=== PATIENT | male | born 1965 | race Caucasian/White ===

== ENCOUNTER 2016-10-18 18:04 | Inpatient (IN) | payer MEDICAID ==
[~2016-10-18] VITALS: Ht 177.8 cm; Wt 117.5 kg
[2016-10-18] MEDS ORDERED: SOD CHLORIDE 0.9% 1,000 ML IV STA (18:22)
[2016-10-18 18:34] LABS: ADD SCAN DIFF NO
[2016-10-18 18:36] LABS: BASOPHIL # 0.1 10^3/ul (0.0-0.1); BASOPHILS % 0.6 % (0.0-2.0); EOSINOPHILS # 0.2 10^3/ul (0.0-0.5); EOSINOPHILS % 1.8 % (0.0-7.0); HEMATOCRIT 44.6 % (42.0-52.0); HEMOGLOBIN 14.9 g/dl (14.0-18.0); LYMPHOCYTES # 3.6 10^3/ul (0.8-2.9); LYMPHOCYTES % 39.8 % (15.0-51.0); MEAN CORPUSCULAR HEMOGLOBIN 27.6 pg (29.0-33.0); MEAN CORPUSCULAR HGB CONC 33.4 g/dl (32.0-37.0); MEAN CORPUSCULAR VOLUME 82.6 fl (82.0-101.0); MEAN PLATELET VOLUME 9.3 fl (7.4-10.4); MONOCYTE # 0.8 10^3/ul (0.3-0.9); MONOCYTES % 8.4 % (0.0-11.0); NEUTROPHIL # 4.4 10^3/ul (1.6-7.5); NEUTROPHILS % 49.1 % (39.0-77.0); PLATELET COUNT 274 10^3/UL (140-415); RED CELL DISTRIBUTION WIDTH 13.4 % (11.5-14.5)
[2016-10-18 18:50] LABS: INR 0.99; PROTIME 13.1 Sec (12.2-14.2)
[2016-10-18 18:51] LABS: PARTIAL THROMBOPLASTIN TIME 22.9 Sec (25.0-35.0)
[2016-10-18 18:56] LABS: ANION GAP 20 (8-16); BLOOD UREA NITROGEN 21 mg/dl (7-20); CALCIUM 10.1 mg/dl (8.4-10.2); CARBON DIOXIDE 26 mmol/L (21-31); CHLORIDE 98 mmol/L (97-110); CREATININE 0.91 mg/dl (0.61-1.24); GLUCOSE 193 mg/dl (70-220); MAGNESIUM 1.6 mg/dl (1.7-2.5); SODIUM 140 mmol/L (135-144)
[2016-10-18] MEDS ORDERED: DILTIAZEM 25 MG INJ IV ONE ×2 (19:00→20:00)
[2016-10-18] MEDS ORDERED: DILTIAZEM 30 MG TAB PO ONE (19:00)
[2016-10-18 19:13] LABS: TROPONIN-I < 0.012 ng/ml (0.00-0.12)
[2016-10-18] MEDS ORDERED: MAGNESIUM SULFATE 2 GM/50 ML 50 ML IVPB ONE (19:30)
--- NOTE | 2016-10-18 19:38 | RADRPT ---
PROCEDURE: XR, Chest. CLINICAL INDICATION: Chest pain. TECHNIQUE: AP chest COMPARISON: None available. FINDINGS: There is no acute infiltrate in the lungs. No pleural effusion. The heart is not enlarged. IMPRESSION: 1. Unremarkable chest x-ray. RPTAT: GG .Jim Duenas MD, Date Time Electronically viewed and signed by .Jim Duenas MD, MD on 10/18/2016 19:37 .Y/
--- NOTE | 2016-10-18 19:52 | HP ---
Date/Time of Note Date/Time of Note DATE: 10/18/16 TIME: 19:50 Assessment/Plan VTE Prophylaxis VTE Prophylaxis Intervention: LMWH Lines/Catheters IV Catheter Type (from Nrsg): Saline Lock Assessment/Plan Assessment/Plan 51-year-old male who was referred to us for an abnormal EKG now managed as follows: 1. New onset atrial flutter with rapid ventricular response 2. Uncontrolled hypertension 3. Hypomagnesemia mild Plan Admit patient to telemetry floor, rule out acute coronary syndrome, cardiology consult, 2D echo, urine toxicology screen Continue calcium channel as well as beta blockers, titrate for improved rate control Patient will likely require anticoagulation, will defer to cardiology, in the interim, start aspirin therapy Replace and monitor electrolytes, keep magnesium greater than 2 and potassium at least 4.0 Supportive care with pain control, antiemetics as needed Further interventions per clinical course Prophylaxis: Lovenox/Pepcid HPI/ROS Admit Date/Time Admit Date/Time October 18, 2016 Hx of Present Illness 51-year-old male with a past medical history of high blood pressure and diabetes outside clinic who was referred to us from an where he had an abnormal EKG. Patient reports just feeling sick with occasional palpitations and some nausea, but he had no chest pain or shortness of breath. Was recently diagnosed with high blood pressure and started on 3 new medications, but did not feel better and that is why he went back to the clinic today. EKG showed atrial flutter and this was reproduced in the emergency room with a rapid ventricular response he was treated with calcium channel blockers with mild improvement and he is being admitted for a detailed workup and cardiology review and further management. ROS 12 point review if systems was done and pertinent findings are as noted. PMH/Family/Social Past Medical History Medical History: diabetes, hypertension Past Surgical History Past Surgical Hx: no surgical history Social History Smoking Status: Never smoker Exam/Review of Systems Vital Signs Vitals VS - Last 72 Hours, by Label Date Time Temp Pulse Resp B/P Pulse Ox O2 Delivery O2 Flow Rate FiO2 10/18/16 18:07 97.9 135 20 180/119 98 Vital Signs Date Time Temp Pulse Resp B/P Pulse Ox O2 Delivery O2 Flow Rate FiO2 10/18/16 18:07 97.9 135 20 180/119 98 Exam Exam GENERAL: Patient is alert, oriented x 3, in no apparent distress; does not appear acutely or chronically ill. Patient is able to sit up unassisted. obese , unkempt HEENT: Oropharynx is clear. There is no carotid bruit, no masses. Patient's pupils are equal, round and reactive to light bilaterally. Extraocular motions are intact. There is no scleral icterus. There is no facial asymmetry. NECK: Supple. LUNGS: Clear to auscultation bilaterally with good air entry. No Wheezes or crackles. HEART: irregularly irregular, tachycardia, no murmurs ABDOMEN: Soft, nontender. Normoactive bowel sounds. There are no stigmata of chronic liver disease. BACK: no costovertebral angle tenderness. GENITOURINARY: Deferred. EXTREMITIES: No edema. There is no cyanosis, clubbing. There are 2+ pulses bilaterally distally. NEUROLOGIC: The patient has no lateralizing signs. Cranial nerves II-XII are intact. SKIN: Otherwise, unremarkable. Labs Result Diagram: 10/18/16 18310/18/16 183 Medications Medications Current Medications Magnesium Sulfate (Magnesium Sulfate 2 Gm/50 ml) 50 ml @ 25 mls/hr ONCE ONCE IVPB Last administered on 10/18/16t 19:27; Admin Dose 25 MLS/HR; Start 10/18/16 at 19:30; Stop 10/18/16 at 21:29 Diltiazem HCl (Cardizem Iv) 20 mg ONCE ONCE IV ; Start 10/18/16 at 20:00; Stop 10/18/16 at 20:01 Procedures Procedures Laboratory Tests Test 10/18/16 18:30 White Blood Count 9.010^3/ul Red Blood Count 5.4010^6/ul Hemoglobin 14.9g/dl Hematocrit 44.6% Mean Corpuscular Volume 82.6fl Mean Corpuscular Hemoglobin 27.6pg Mean Corpuscular Hemoglobin Concent 33.4g/dl Red Cell Distribution Width 13.4% Platelet Count 51759^3/UL Mean Platelet Volume 9.3fl Neutrophils % 49.1% Lymphocytes % 39.8% Monocytes % 8.4% Eosinophils % 1.8% Basophils % 0.6% Nucleated Red Blood Cells % 0.0/100WBC Neutrophils # 4.410^3/ul Lymphocytes # 3.610^3/ul Monocytes # 0.810^3/ul Eosinophils # 0.210^3/ul Basophils # 0.110^3/ul Nucleated Red Blood Cells # 0.010^3/ul Prothrombin Time 13.1Sec Prothrombin Time Ratio 1.0 INR International Normalized Ratio 0.99 Activated Partial Thromboplast Time 22.9Sec Sodium Level 140mmol/L Potassium Level 4.0mmol/L Chloride Level 98mmol/L Carbon Dioxide Level 26mmol/L Anion Gap 20 Blood Urea Nitrogen 21mg/dl Creatinine 0.91mg/dl Glucose Level 193mg/dl Calcium Level 10.1mg/dl Magnesium Level 1.6mg/dl Troponin I < 0.012ng/ml Thyroid Stimulating Hormone (TSH) 1.380MIU/L Free Thyroxine 0.79ng/dl ER INTERVENTIONS Medications (Trade) Dose Ordered Sig/Chyna Route PRN Reason Start Time Stop Time Status Last Admin Dose Admin Sodium Chloride (NS) 1,000 ml @ 1,000 mls/hr Q1H STAT IV 10/18/16 18:22 10/18/16 19:21 DC 10/18/16 19:22 1,000 MLS/HR Diltiazem HCl (Cardizem Iv) 20 mg ONCE ONCE IV 10/18/16 19:00 10/18/16 19:01 DC 10/18/16 19:21 20 MG Diltiazem HCl 30 mg 30 mg ONCE ONCE PO 10/18/16 19:00 10/18/16 19:01 DC 10/18/16 19:29 30 MG Magnesium Sulfate (Magnesium Sulfate 2 Gm/50 ml) 50 ml @ 25 mls/hr ONCE ONCE IVPB 10/18/16 19:30 10/18/16 21:29 10/18/16 19:27 25 MLS/HR Ondansetron HCl (Zofran Inj) 4 mg ER BRIDGE PRN IV NAUSEA AND/OR VOMITING 10/18/16 20:00 10/19/16 19:59 Acetaminophen (Tylenol Tab) 650 mg ER BRIDGE PRN PO MILD PAIN/FEVER 10/18/16 20:00 10/19/16 19:59 Diltiazem HCl (Cardizem Iv) 20 mg ONCE ONCE IV 10/18/16 20:00 10/18/16 20:01 PROCEDURE: XR, Chest. CLINICAL INDICATION: Chest pain. TECHNIQUE: AP chest COMPARISON: None available. FINDINGS: There is no acute infiltrate in the lungs. No pleural effusion. The heart is not enlarged. IMPRESSION: 1. Unremarkable chest x-ray. RPTAT: GG .Jim Duenas MD, MD Date Time Electronically viewed and signed by .Jim Duenas MD, MD on 10/18/2016 19:37 .Y/ CC: LAURIE MONTANA MD I reviewed EKG Rate: tachycardia Rhythm: A flutter Note: No ST elevation or depressions noted concerning for acute ischemic event. LEONOR CONLEY Oct 18, 2016 19:52 LEONOR CONLEY Oct 18, 2016 19:52
[2016-10-18] MEDS ORDERED: ONDANSETRON 4 MG INJ IV PRN (20:00)
[2016-10-18] MEDS ORDERED: ACETAMINOPHEN 325 MG TAB PO PRN (20:00)
[2016-10-18 20:35] VITALS: PULSE 100
[2016-10-18 20:45] VITALS: BP 136/80; RESP 17
[2016-10-18] MEDS ORDERED: SOD CHLORIDE 0.9% 1,000 ML IV SCH (21:30)
[2016-10-18] MEDS: FAMOTIDINE 20 MG TAB PO SCH (21:37)
[2016-10-18] MEDS: METOPROLOL 25 MG TAB PO SCH (21:38)
[2016-10-18] MEDS: ZOLPIDEM 5 MG TAB PO PRN (21:38)
[2016-10-18 21:53] VITALS: Ht 177.8 cm; Wt 117.5 kg
--- NOTE | 2016-10-18 21:58 | ERA ---
ER Documentation Chief Complaint Date/Time DATE: 10/18/16 TIME: 21:54 Chief Complaint sent from clinic due to HTN and abnormal EKG denies sob or CP HPI Patient is a 51-year-old male with hypertension and diabetes who presents saying that he is "feeling lousy". He went to a clinic today and had an EKG which showed atrial flutter so he was sent to the emergency department. He was seen by another clinic on Friday and was prescribed losartan, amlodipine, and hydrochlorothiazide for high blood pressure. He felt a little bit better after starting these medicines but still did not feel back to his normal which is why he went to the clinic today. He has never had atrial flutter or fibrillation in the past. He does not have a true primary doctor and has only been seen in urgent care clinics. Upon review of old medical records this is the patient's first visit to the emergency department. ROS All systems reviewed and are negative except as per history of present illness. Allergies Allergies: Coded Allergies: No Known Allergy (Unverified , 10/18/16) PMhx/Soc Medical and Surgical Hx: pt denies Surgical Hx History of Surgery: No Anesthesia Reaction: No Hx Neurological Disorder: No Hx Respiratory Disorders: No Hx Cardiac Disorders: Yes (HTN) Hx Psychiatric Problems: No Hx Miscellaneous Medical Probl: Yes (DM) Hx Alcohol Use: No Hx Substance Use: No Hx Tobacco Use: No Smoking Status: Never smoker FmHx Family History: diabetes Physical Exam Vitals Vital Signs Date Time Temp Pulse Resp B/P Pulse Ox O2 Delivery O2 Flow Rate FiO2 10/18/16 18:07 97.9 135 20 180/119 98 Physical Exam Const: Moderate distress Head: Atraumatic Eyes: Normal Conjunctiva ENT: Normal External Ears, Nose and Mouth. Neck: Full range of motion..~ No meningismus. Resp: Clear to auscultation bilaterally Cardio: Tachycardic rate without murmur Abd: Soft, non tender, non distended. Normal bowel sounds Skin: No petechiae or rashes Back: No midline or flank tenderness Ext: No cyanosis, or edema Neur: Awake and alert Psych: Normal Mood and Affect Result Diagram: 10/18/16 1830 10/18/16 1830 Results 24 hrs Laboratory Tests Test 10/18/16 18:30 White Blood Count 9.010^3/ul Red Blood Count 5.4010^6/ul Hemoglobin 14.9g/dl Hematocrit 44.6% Mean Corpuscular Volume 82.6fl Mean Corpuscular Hemoglobin 27.6pg Mean Corpuscular Hemoglobin Concent 33.4g/dl Red Cell Distribution Width 13.4% Platelet Count 29587^3/UL Mean Platelet Volume 9.3fl Neutrophils % 49.1% Lymphocytes % 39.8% Monocytes % 8.4% Eosinophils % 1.8% Basophils % 0.6% Nucleated Red Blood Cells % 0.0/100WBC Neutrophils # 4.410^3/ul Lymphocytes # 3.610^3/ul Monocytes # 0.810^3/ul Eosinophils # 0.210^3/ul Basophils # 0.110^3/ul Nucleated Red Blood Cells # 0.010^3/ul Prothrombin Time 13.1Sec Prothrombin Time Ratio 1.0 INR International Normalized Ratio 0.99 Activated Partial Thromboplast Time 22.9Sec Sodium Level 140mmol/L Potassium Level 4.0mmol/L Chloride Level 98mmol/L Carbon Dioxide Level 26mmol/L Anion Gap 20 Blood Urea Nitrogen 21mg/dl Creatinine 0.91mg/dl Glucose Level 193mg/dl Calcium Level 10.1mg/dl Magnesium Level 1.6mg/dl Troponin I < 0.012ng/ml Thyroid Stimulating Hormone (TSH) 1.380MIU/L Free Thyroxine 0.79ng/dl Current Medications Medications (Trade) Dose Ordered Sig/Chyna Route PRN Reason Start Time Stop Time Status Last Admin Dose Admin Sodium Chloride (NS) 1,000 ml @ 1,000 mls/hr Q1H STAT IV 10/18/16 18:22 10/18/16 19:21 DC 10/18/16 19:22 Diltiazem HCl (Cardizem Iv) 20 mg ONCE ONCE IV 10/18/16 19:00 10/18/16 19:01 DC 10/18/16 19:21 Diltiazem HCl 30 mg 30 mg ONCE ONCE PO 10/18/16 19:00 10/18/16 19:01 DC 10/18/16 19:29 Magnesium Sulfate (Magnesium Sulfate 2 Gm/50 ml) 50 ml @ 25 mls/hr ONCE ONCE IVPB 10/18/16 19:30 10/18/16 21:18 DC 10/18/16 19:27 Procedures/MDM EKG read by me: Rate/Rhythm: Atrial flutter with rapid ventricular response Intervals: Normal Impression: Atrial flutter with RVR Chest X-ray 1V Interpreted by me: Soft Tissue: No acute abnormalities Bones: No acute abnormalities Mediastinum/Cardiac Silhouette/Lungs: No acute abnormalities Patient is a 51-year-old male who presents with acute new onset atrial flutter with rapid ventricular response. The patient will need admission to the hospital for rhythm control versus rate control. I spoke with Dr. Mejia from the panel team for admission. I also spoke with Dr. Murcia who can see the patient in consultation. The patient was given 2 doses of diltiazem IV as well as 1 dose by mouth. Given the patient's age he would likely benefit from rhythm control but given the length of his symptoms I would be concerned about cardioverting without ensuring that there is no clot within the heart. The patient will be admitted to a telemetry bed. He did have a low magnesium level of 1.6 and 2 g of magnesium were ordered as well. Critical Care: Time: 35 minutes excluding all billable procedures. Treatments/Evaluations: Close monitoring and treatment of unstable vital signs, cardiorespiratory, and neurologic status, while maintaining tight balance of fluid, respiratory, and cardiac interventions. Departure Diagnosis: Primary Impression: Atrial flutter with rapid ventricular response Additional Impression: Hypomagnesemia Condition: Serious LAURIE MONTANA MD Oct 18, 2016 21:57
[2016-10-19] VITALS (12 sets, daily range): BP systolic 102–138; BP diastolic 65–94; PULSE 90–130; RESP 18–20
[2016-10-19] MEDS: DILTIAZEM 30 MG TAB PO SCH ×2 (01:30→06:04)
[2016-10-19 01:32] LABS: CREATINE KINASE 65 IU/L (23-200)
[2016-10-19 01:52] LABS: CK-MB 1.07 ng/ml (0.0-2.4); TROPONIN-I < 0.012 ng/ml (0.00-0.12)
[2016-10-19 06:20] LABS: ADD SCAN DIFF NO
[2016-10-19 06:46] LABS: BASOPHILS % 0.4 % (0.0-2.0); EOSINOPHILS # 0.1 10^3/ul (0.0-0.5); EOSINOPHILS % 1.8 % (0.0-7.0); HEMATOCRIT 44.5 % (42.0-52.0); HEMOGLOBIN 14.1 g/dl (14.0-18.0); LYMPHOCYTES # 2.8 10^3/ul (0.8-2.9); LYMPHOCYTES % 38.7 % (15.0-51.0); MEAN CORPUSCULAR HEMOGLOBIN 26.7 pg (29.0-33.0); MEAN CORPUSCULAR HGB CONC 31.7 g/dl (32.0-37.0); MEAN CORPUSCULAR VOLUME 84.1 fl (82.0-101.0); MONOCYTE # 0.6 10^3/ul (0.3-0.9); MONOCYTES % 8.4 % (0.0-11.0); NEUTROPHIL # 3.6 10^3/ul (1.6-7.5); NEUTROPHILS % 50.3 % (39.0-77.0); RED BLOOD COUNT 5.29 10^6/ul (4.70-6.10); RED CELL DISTRIBUTION WIDTH 13.4 % (11.5-14.5); WHITE BLOOD COUNT 7.1 10^3/ul (4.8-10.8)
[2016-10-19 06:53] LABS: INR 0.97; PROTIME 12.9 Sec (12.2-14.2)
[2016-10-19 06:54] LABS: PARTIAL THROMBOPLASTIN TIME 24.9 Sec (25.0-35.0)
[2016-10-19 06:58] LABS: MEAN PLATELET VOLUME 11.7 fl (7.4-10.4); PLATELET COUNT 196 10^3/UL (140-415)
[2016-10-19 07:03] LABS: CHOL/HDL RATIO 7.4 RATIO; CREATININE 0.83 mg/dl (0.61-1.24); MAGNESIUM 1.6 mg/dl (1.7-2.5); PHOSPHORUS 4.1 mg/dl (2.5-4.9); POTASSIUM 4.5 mmol/L (3.5-5.1)
[2016-10-19 07:16] LABS: TROPONIN-I 0.015 ng/ml (0.00-0.12)
[2016-10-19 07:21] LABS: CK-MB 1.19 ng/ml (0.0-2.4)
[2016-10-19] MEDS ORDERED: DEXTROSE 50% 50 ML SYRINGE IV PRN ×2 (09:00)
[2016-10-19] MEDS ORDERED: ENOXAPARIN 40 MG/0.4 ML SYG SC SCH (09:00)
[2016-10-19] MEDS ORDERED: MAGNESIUM SULFATE 4 GM/100 ML 100 ML IVPB ONE (09:00)
[2016-10-19] MEDS ORDERED: GLUCOSE GEL 15 GRAM TUBE PO PRN ×2 (09:00)
[2016-10-19] MEDS ORDERED: GLUCAGON 1 MG INJ IM PRN (09:00)
[2016-10-19] MEDS ORDERED: GLUCOSE GEL 15 GRAM TUBE BUCCAL PRN (09:00)
[2016-10-19 09:24] LABS: BARBITURATES Negative (NEGATIVE); BENZODIAZEPINES Negative (NEGATIVE); CANNABINOIDS Negative (NEGATIVE); COCAINE Negative (NEGATIVE); OPIATES Negative (NEGATIVE)
[2016-10-19] MEDS: DILTIAZEM (CD) 120 MG CAP PO SCH ×2 (09:51→20:26)
[2016-10-19] MEDS: DOCUSATE SODIUM 100 MG CAP PO SCH ×2 (09:52→20:24)
[2016-10-19] MEDS: METOPROLOL 25 MG TAB PO SCH ×3 (09:52→20:25)
[2016-10-19] MEDS: FAMOTIDINE 20 MG TAB PO SCH ×2 (09:52→20:24)
[2016-10-19] MEDS ORDERED: DIGOXIN 500 MCG INJ IV ONE (11:30)
--- NOTE | 2016-10-19 11:38 | CONS ---
Date/Time of Note Date/Time of Note DATE: 10/19/16 TIME: 11:35 Assessment/Plan Assessment/Plan Chief Complaint/Hosp Course 1) atrial flutter 2) DM 3) HTN Problems: Additional Assessment/Plan 1) echo 2) AC w eliquis 5 bid 3) dc lovenox 4) Digoxin 5) metoprolol Consultation Date/Type/Reason Admit Date/Time October 18, 2016 Date of Consultation: Oct 19, 2016 Type of Consultation: cv Reason for Consultation arrhythmia Hx of Present Illness reports palpitations, no chest pain, no sob, eager to leave admitted with palpitations and arrhyhtmia, no chest pain, no sob, no syncope, eager to leave Eyes: no complaints ENT: no complaints Respiratory: no complaints Cardiovascular: palpitations Gastrointestinal: no complaints Musculoskeletal: no complaints Skin: no complaints Neurologic: no complaints Past Medical History Medical History: diabetes, hypertension Past Surgical History Past Surgical Hx: no surgical history Family History Significant Family History: hypertension Social History Smoking Status: Never smoker Exam/Review of Systems Vital Signs Vitals Vital Signs Date Time Temp Pulse Resp B/P Pulse Ox O2 Delivery O2 Flow Rate FiO2 10/19/16 08:07 127 10/19/16 07:04 98.3 19 133/94 96 Intake and Output 10/18/16 10/18/16 10/19/16 15:00 23:00 07:00 Intake Total 1250 ml Output Total 450 ml Balance 800 ml Exam Constitutional: alert, oriented Head: atraumatic, normocephalic Neck: supple Respiratory: clear to auscultation Cardiovascular: gallop Gastrointestinal: soft Musculoskeletal: nl extremities to inspection Extremities: normal pulses Results Result Diagram: 10/19/16 0520 10/19/16 0520 Results 24 hrs Laboratory Tests Test 10/18/16 18:30 10/19/16 00:40 10/19/16 04:00 10/19/16 05:20 White Blood Count 9.0 7.1 # Red Blood Count 5.40 5.29 Hemoglobin 14.9 14.1 Hematocrit 44.6 44.5 Mean Corpuscular Volume 82.6 84.1 Mean Corpuscular Hemoglobin 27.6 L 26.7 L Mean Corpuscular Hemoglobin Concent 33.4 31.7 L Red Cell Distribution Width 13.4 13.4 Platelet Count 274 196 # Mean Platelet Volume 9.3 11.7 #H Neutrophils % 49.1 50.3 Lymphocytes % 39.8 38.7 Monocytes % 8.4 8.4 Eosinophils % 1.8 1.8 Basophils % 0.6 0.4 Nucleated Red Blood Cells % 0.0 0.0 Neutrophils # 4.4 3.6 Lymphocytes # 3.6 H 2.8 Monocytes # 0.8 0.6 Eosinophils # 0.2 0.1 Basophils # 0.1 0.0 Nucleated Red Blood Cells # 0.0 0.0 Prothrombin Time 13.1 12.9 Prothrombin Time Ratio 1.0 1.0 INR International Normalized Ratio 0.99 0.97 Activated Partial Thromboplast Time 22.9 L 24.9 L Sodium Level 140 137 Potassium Level 4.0 4.5 Chloride Level 98 103 Carbon Dioxide Level 26 25 Anion Gap 20 H 14 Blood Urea Nitrogen 21 H 18 Creatinine 0.91 0.83 Glucose Level 193 206 Calcium Level 10.1 9.0 Magnesium Level 1.6 L 1.6 L Troponin I < 0.012 < 0.012 0.015 Thyroid Stimulating Hormone (TSH) 1.380 Free Thyroxine 0.79 Creatine Kinase 65 62 Creatine Kinase Index 1.6 1.9 Creatinine Kinase MB (Mass) 1.07 1.19 Urine Opiates Screen Negative Urine Barbiturates Negative Urine Amphetamines Screen Negative Urine Benzodiazepines Screen Negative Urine Cocaine Screen Negative Urine Cannabinoids Negative Hemoglobin A1c 10.6 H Phosphorus Level 4.1 Triglycerides Level 276 H Cholesterol Level 291 H LDL Cholesterol, Calculated 197 HDL Cholesterol 39 Cholesterol/HDL Ratio 7.4 Test 10/19/16 08:43 Bedside Glucose 203 Medications Medications Current Medications Metoprolol Tartrate (Lopressor) 25 mg BID PO Last administered on 10/19/16 09: 52; Admin Dose 25 MG; Start 10/18/16 at 21:30 Famotidine (Pepcid) 20 mg BID PO Last administered on 10/19/16 09:52; Admin Dose 20 MG; Start 10/18/16 at 21:30 Docusate Sodium (Colace) 100 mg BID PO Last administered on 10/19/16 09:52; Admin Dose 100 MG; Start 10/19/16 at 09:00 Diltiazem HCl (Cardizem) 30 mg Q8 PO Last administered on 10/19/16 06:04; Admin Dose 30 MG; Start 10/19/16 at 01:00; Status Future Hold Zolpidem Tartrate (Ambien) 5 mg HS PRN PO INSOMNIA Last administered on 21:38; Admin Dose 5 MG; Start 10/18/16 at 21:30 Enoxaparin Sodium (Lovenox) 40 mg DAILY SC Last administered on 10/19/16 09:54 ; Admin Dose 40 MG; Start 10/19/16 at 09:00 Diltiazem HCl 120 mg 120 mg BID PO Last administered on 10/19/16 09:51; Admin Dose 120 MG; Start 10/19/16 at 09:00 Magnesium Sulfate (Magnesium Sulfate 4 Gm/100 ml) 100 ml @ 25 mls/hr ONCE ONCE IVPB Last administered on 10/19/16 09:52; Admin Dose 25 MLS/HR; Start 10/19 at 09:00; Stop 10/19/16 at 12:59 Insulin Glargine (Lantus) 20 unit DAILY@20 SC ; Start 10/19/16 at 20:00 Diagnostic Test (Pha) (Accu-Chek) 1 ea 02 XX ; Start 10/20/16 at 02:00 Miscellaneous Information 1 ea NOTE XX ; Start 10/19/16 at 09:00 Glucose (Glutose) 15 gm Q15M PRN PO DECREASED GLUCOSE; Start 10/19/16 at 09:00 Glucose (Glutose) 22.5 gm Q15M PRN PO DECREASED GLUCOSE; Start 10/19/16 at 09:00 Dextrose (D50w Syringe) 25 ml Q15M PRN IV DECREASED GLUCOSE; Start 10/19/16 at 09:00 Dextrose (D50w Syringe) 50 ml Q15M PRN IV DECREASED GLUCOSE; Start 10/19/16 at 09:00 Glucagon (Glucagen) 1 mg Q15M PRN IM DECREASED GLUCOSE; Start 10/19/16 at 09:00 Glucose (Glutose) 15 gm Q15M PRN BUCCAL DECREASED GLUCOSE; Start 10/19/16 at 09: 00 MIGUEL HE MD Oct 19, 2016 11:38
[2016-10-19] MEDS: APIXABAN 5 MG TABLET PO SCH ×2 (12:11→22:36)
[2016-10-19] MEDS: INSULIN ASPART [NOVOLOG] 3 ML PEN SC SCH ×5 (12:21→20:36)
--- NOTE | 2016-10-19 14:11 | PN ---
Date/Time of Note Date/Time of Note DATE: 10/19/16 TIME: 14:09 Assessment/Plan VTE Prophylaxis VTE Prophylaxis Intervention: other (Factor Xa inhibitors) Lines/Catheters IV Catheter Type (from [facility]): Peripheral IV Assessment/Plan Chief Complaint/Hosp Course 1. Atrial flutter. On digoxin and beta-blockers for rate control. Patient was started on therapeutic anticoagulation because of high CHADS 2 score. Pending 2D echocardiogram. 2. Type 2 diabetes mellitus. Hemoglobin A1c 10.6. Continue sliding scale insulin along with basal insulin and pre-meal insulin. 3. Dyslipidemia. We will start the patient on statins. 4. Essential hypertension. Continue antihypertensives. 5. Fluids, electrolytes, and nutrition. Carbohydrate controlled, low- cholesterol diet. 6. DVT prophylaxis. On therapeutic anticoagulation. 7. Gastrointestinal prophylaxis. Histamine 2 receptor blockers. 8. Plan. Continue rate control. Continue therapeutic anticoagulation. Start statins. Await 2D echocardiogram. Case discussed with Problems: Subjective 24 Hr Interval Summary Free Text/Dictation Denies any chest pain. Denies any palpitations. Exam/Review of Systems Vital Signs Vitals Vital Signs Date Time Temp Pulse Resp B/P Pulse Ox O2 Delivery O2 Flow Rate FiO2 10/19/16 12:00 124 10/19/16 11:35 98.0 18 138/87 96 Intake and Output 10/18/16 10/18/16 10/19/16 15:00 23:00 07:00 Intake Total 1250 ml Output Total 450 ml Balance 800 ml Exam General: Morbidly obese 51 year-old male lying in bed in no apparent distress. HEENT: Normocephalic, atraumatic. Eyes: Anicteric sclerae, conjunctivae clear. ENT: Nasal septum midline, oral mucosa moist. Neck supple, no JVD noticed. Respiratory: Bilaterally clear breath sounds. No use of accessory muscles of respiration. No adventitious breath sounds. Cardiovascular: S1, S2 heard. No murmurs or gallops. Irregularly irregular rhythm. Abdomen: Soft, nontender, and nondistended. Bowel sounds positive in all 4 quadrants. Genitourinary: Deferred. Extremities: No cyanosis, no clubbing, no edema. Peripheral pulses palpable. Neurologic: Cranial nerves II through XII grossly intact. The patient is awake, alert, and oriented. Skin: Normal skin turgor. No skin rashes. Results Result Diagram: 10/19/16 0520 10/19/16 0520 Results 24 hrs Laboratory Tests Test 10/18/16 18:30 10/19/16 00:40 10/19/16 04:00 10/19/16 05:20 White Blood Count 9.0 7.1 # Red Blood Count 5.40 5.29 Hemoglobin 14.9 14.1 Hematocrit 44.6 44.5 Mean Corpuscular Volume 82.6 84.1 Mean Corpuscular Hemoglobin 27.6 L 26.7 L Mean Corpuscular Hemoglobin Concent 33.4 31.7 L Red Cell Distribution Width 13.4 13.4 Platelet Count 274 196 # Mean Platelet Volume 9.3 11.7 #H Neutrophils % 49.1 50.3 Lymphocytes % 39.8 38.7 Monocytes % 8.4 8.4 Eosinophils % 1.8 1.8 Basophils % 0.6 0.4 Nucleated Red Blood Cells % 0.0 0.0 Neutrophils # 4.4 3.6 Lymphocytes # 3.6 H 2.8 Monocytes # 0.8 0.6 Eosinophils # 0.2 0.1 Basophils # 0.1 0.0 Nucleated Red Blood Cells # 0.0 0.0 Prothrombin Time 13.1 12.9 Prothrombin Time Ratio 1.0 1.0 INR International Normalized Ratio 0.99 0.97 Activated Partial Thromboplast Time 22.9 L 24.9 L Sodium Level 140 137 Potassium Level 4.0 4.5 Chloride Level 98 103 Carbon Dioxide Level 26 25 Anion Gap 20 H 14 Blood Urea Nitrogen 21 H 18 Creatinine 0.91 0.83 Glucose Level 193 206 Calcium Level 10.1 9.0 Magnesium Level 1.6 L 1.6 L Troponin I < 0.012 < 0.012 0.015 Thyroid Stimulating Hormone (TSH) 1.380 Free Thyroxine 0.79 Creatine Kinase 65 62 Creatine Kinase Index 1.6 1.9 Creatinine Kinase MB (Mass) 1.07 1.19 Urine Opiates Screen Negative Urine Barbiturates Negative Urine Amphetamines Screen Negative Urine Benzodiazepines Screen Negative Urine Cocaine Screen Negative Urine Cannabinoids Negative Hemoglobin A1c 10.6 H Phosphorus Level 4.1 Triglycerides Level 276 H Cholesterol Level 291 H LDL Cholesterol, Calculated 197 HDL Cholesterol 39 Cholesterol/HDL Ratio 7.4 Test 10/19/16 08:43 10/19/16 12:09 Bedside Glucose 203 178 Medications Medications Current Medications Famotidine (Pepcid) 20 mg BID PO Last administered on 10/19/16 09:52; Admin Dose 20 MG; Start 10/18/16 at 21:30 Docusate Sodium (Colace) 100 mg BID PO Last administered on 10/19/16 09:52; Admin Dose 100 MG; Start 10/19/16 at 09:00 Diltiazem HCl (Cardizem) 30 mg Q8 PO Last administered on 10/19/16 06:04; Admin Dose 30 MG; Start 10/19/16 at 01:00; Status Future Hold Zolpidem Tartrate (Ambien) 5 mg HS PRN PO INSOMNIA Last administered on 21:38; Admin Dose 5 MG; Start 10/18/16 at 21:30 Diltiazem HCl (Cardizem Cd) 120 mg BID PO Last administered on 10/19/16 09:51; Admin Dose 120 MG; Start 10/19/16 at 09:00 Insulin Glargine (Lantus) 20 unit DAILY@20 SC ; Start 10/19/16 at 20:00 Diagnostic Test (Pha) (Accu-Chek) 1 ea 02 XX ; Start 10/20/16 at 02:00 Miscellaneous Information 1 ea NOTE XX ; Start 10/19/16 at 09:00 Glucose (Glutose) 15 gm Q15M PRN PO DECREASED GLUCOSE; Start 10/19/16 at 09:00 Glucose (Glutose) 22.5 gm Q15M PRN PO DECREASED GLUCOSE; Start 10/19/16 at 09:00 Dextrose (D50w Syringe) 25 ml Q15M PRN IV DECREASED GLUCOSE; Start 10/19/16 at 09:00 Dextrose (D50w Syringe) 50 ml Q15M PRN IV DECREASED GLUCOSE; Start 10/19/16 at 09:00 Glucagon (Glucagen) 1 mg Q15M PRN IM DECREASED GLUCOSE; Start 10/19/16 at 09:00 Glucose (Glutose) 15 gm Q15M PRN BUCCAL DECREASED GLUCOSE; Start 10/19/16 at 09: 00 Metoprolol Tartrate (Lopressor) 25 mg BID PO Last administered on 10/19/16 12: 11; Admin Dose 25 MG; Start 10/19/16 at 12:00 Digoxin (Digoxin) 0.125 mg DAILY@13 PO ; Start 10/20/16 at 13:00 Apixaban (Eliquis) 5 mg BID PO Last administered on 10/19/16t 12:11; Admin Dose 5 MG; Start 10/19/16 at 13:00 Atorvastatin Calcium (Lipitor) 40 mg HS PO ; Start 10/19/16 at 21:00 EDA BENTON NP Oct 19, 2016 14:10
[2016-10-19] MEDS: ATORVASTATIN 40 MG TAB PO SCH (20:24)
[2016-10-19] MEDS: ZOLPIDEM 5 MG TAB PO PRN (20:34)
[2016-10-19] MEDS: INSULIN GLARGINE [LANtus] 3 ML PEN SC SCH (20:34)
[2016-10-20] VITALS (12 sets, daily range): BP systolic 111–137; BP diastolic 72–93; PULSE 83–125; RESP 18–19
[2016-10-20] MEDS: ACCU-CHEK XX SCH (02:00)
[2016-10-20 06:32] LABS: ADD SCAN DIFF NO
[2016-10-20 06:35] LABS: BASOPHILS % 0.4 % (0.0-2.0); EOSINOPHILS # 0.1 10^3/ul (0.0-0.5); EOSINOPHILS % 1.7 % (0.0-7.0); HEMATOCRIT 41.1 % (42.0-52.0); HEMOGLOBIN 14.2 g/dl (14.0-18.0); LYMPHOCYTES # 2.7 10^3/ul (0.8-2.9); LYMPHOCYTES % 36.7 % (15.0-51.0); MEAN CORPUSCULAR HEMOGLOBIN 28.5 pg (29.0-33.0); MEAN CORPUSCULAR HGB CONC 34.5 g/dl (32.0-37.0); MEAN CORPUSCULAR VOLUME 82.4 fl (82.0-101.0); MEAN PLATELET VOLUME 9.5 fl (7.4-10.4); MONOCYTE # 0.7 10^3/ul (0.3-0.9); MONOCYTES % 8.7 % (0.0-11.0); NEUTROPHIL # 3.9 10^3/ul (1.6-7.5); NEUTROPHILS % 52.2 % (39.0-77.0); PLATELET COUNT 228 10^3/UL (140-415); RED BLOOD COUNT 4.99 10^6/ul (4.70-6.10); RED CELL DISTRIBUTION WIDTH 13.2 % (11.5-14.5); WHITE BLOOD COUNT 7.4 10^3/ul (4.8-10.8)
[2016-10-20 07:16] LABS: CALCIUM 8.5 mg/dl (8.4-10.2); CREATININE 0.68 mg/dl (0.61-1.24); POTASSIUM 4.4 mmol/L (3.5-5.1)
[2016-10-20 07:19] LABS: MAGNESIUM 1.9 mg/dl (1.7-2.5); PHOSPHORUS 3.2 mg/dl (2.5-4.9)
[2016-10-20] MEDS: INSULIN ASPART [NOVOLOG] 3 ML PEN SC SCH ×7 (07:47→20:43)
[2016-10-20] MEDS: DILTIAZEM (CD) 120 MG CAP PO SCH (08:41)
[2016-10-20] MEDS: METOPROLOL 25 MG TAB PO SCH (08:41)
[2016-10-20] MEDS: FAMOTIDINE 20 MG TAB PO SCH ×2 (08:42→20:42)
[2016-10-20] MEDS: APIXABAN 5 MG TABLET PO SCH ×2 (08:42→20:42)
[2016-10-20] MEDS: DOCUSATE SODIUM 100 MG CAP PO SCH ×2 (08:42→20:41)
--- NOTE | 2016-10-20 10:44 | PN ---
Date/Time of Note Date/Time of Note DATE: 10/20/16 TIME: 10:41 Assessment/Plan VTE Prophylaxis VTE Prophylaxis Intervention: SCD's Lines/Catheters IV Catheter Type (from Rust): Saline Lock Assessment/Plan Chief Complaint/Hosp Course 1. Atrial flutter. Improving. -> Cardiology evaluation appreciated. On Eliquis, beta-blockers and digoxin. Follow-up with 2D echocardiogram. 2. Type 2 diabetes mellitus. Hemoglobin A1c 10.6. Continue sliding scale insulin along with basal insulin and pre-meal insulin. 3. Dyslipidemia. On statins. 4. Essential hypertension. Stable. Continue antihypertensives. DVT prophylaxis. On therapeutic anticoagulation. Gastrointestinal prophylaxis. Histamine 2 receptor blockers. Plan. Follow-up with 2D echocardiogram. Further management per cardiology recommendation. Case discussed with Problems: Subjective 24 Hr Interval Summary Free Text/Dictation Patient lying in bed comfortably. Denies chest pain, palpitation, shortness of breath or other discomfort. Exam/Review of Systems Vital Signs Vitals Vital Signs Date Time Temp Pulse Resp B/P Pulse Ox O2 Delivery O2 Flow Rate FiO2 10/20/16 08:02 100 10/20/16 07:11 97.8 19 111/73 97 Intake and Output 10/19/16 10/19/16 10/20/16 15:00 23:00 07:00 Intake Total 950 ml 240 ml Output Total 650 ml 850 ml Balance 300 ml -610 ml Exam General: Obese male, not in any acute distress . HEENT: Normocephalic, Atraumatic, No laceration or hematoma; Eyes: PEERL, Conjunctiva clear, Anicteric sclera Neck: Supple without any lymphadenopathy, nontender, no JVD, no carotid bruits, trachea midline, no thyromegaly Cardiac: Regular rate and rhythm. No murmurs. Pulmonary: Normal respiratory effort. Chest clear to auscultation bilaterally, no adventitious breath sounds GI: Abdomen normal to inspection. Soft, non tender, non- distended, no masses, no rebound tenderness or guarding. Bowel sounds active on all four quadrants Genitourinary: Deferred Extremities: No cyanosis, clubbing, or edema. Pulses [2+] bilaterally. Full ROM on all four extremities. No focal weakness appreciated. Neurologic: Alert to person, place, time, and situation. Affect appropriate, intact sensation. Skin: Clean,dry, and intact. No ecchymosis, no rashes, or lesions Results Result Diagram: 10/20/16 0620 10/20/16 0620 Results 24 hrs Laboratory Tests Test 10/19/16 12:09 10/19/16 18:00 10/19/16 20:21 10/20/16 06:20 Bedside Glucose 178 221 H 144 White Blood Count 7.4 Red Blood Count 4.99 Hemoglobin 14.2 Hematocrit 41.1 L Mean Corpuscular Volume 82.4 Mean Corpuscular Hemoglobin 28.5 L Mean Corpuscular Hemoglobin Concent 34.5 Red Cell Distribution Width 13.2 Platelet Count 228 Mean Platelet Volume 9.5 Neutrophils % 52.2 Lymphocytes % 36.7 Monocytes % 8.7 Eosinophils % 1.7 Basophils % 0.4 Nucleated Red Blood Cells % 0.0 Neutrophils # 3.9 Lymphocytes # 2.7 Monocytes # 0.7 Eosinophils # 0.1 Basophils # 0.0 Nucleated Red Blood Cells # 0.0 Sodium Level 135 Potassium Level 4.4 Chloride Level 105 Carbon Dioxide Level 20 L Anion Gap 14 Blood Urea Nitrogen 16 Creatinine 0.68 Glucose Level 177 Calcium Level 8.5 Phosphorus Level 3.2 Magnesium Level 1.9 Test 10/20/16 07:39 Bedside Glucose 161 Medications Medications Current Medications Famotidine (Pepcid) 20 mg BID PO Last administered on 10/20/16 08:42; Admin Dose 20 MG; Start 10/18/16 at 21:30 Docusate Sodium (Colace) 100 mg BID PO Last administered on 10/20/16 08:42; Admin Dose 100 MG; Start 10/19/16 at 09:00 Diltiazem HCl (Cardizem) 30 mg Q8 PO Last administered on 10/19/16 06:04; Admin Dose 30 MG; Start 10/19/16 at 01:00; Status Future Hold Zolpidem Tartrate (Ambien) 5 mg HS PRN PO INSOMNIA Last administered on 20:34; Admin Dose 5 MG; Start 10/18/16 at 21:30 Diltiazem HCl (Cardizem Cd) 120 mg BID PO Last administered on 10/20/16 08:41; Admin Dose 120 MG; Start 10/19/16 at 09:00 Insulin Glargine (Lantus) 20 unit DAILY@20 SC Last administered on 10/19/16 20: 34; Admin Dose 20 UNIT; Start 10/19/16 at 20:00 Diagnostic Test (Pha) (Accu-Chek) 1 ea 02 XX ; Start 10/20/16 at 02:00 Miscellaneous Information 1 ea NOTE XX ; Start 10/19/16 at 09:00 Glucose (Glutose) 15 gm Q15M PRN PO DECREASED GLUCOSE; Start 10/19/16 at 09:00 Glucose (Glutose) 22.5 gm Q15M PRN PO DECREASED GLUCOSE; Start 10/19/16 at 09:00 Dextrose (D50w Syringe) 25 ml Q15M PRN IV DECREASED GLUCOSE; Start 10/19/16 at 09:00 Dextrose (D50w Syringe) 50 ml Q15M PRN IV DECREASED GLUCOSE; Start 10/19/16 at 09:00 Glucagon (Glucagen) 1 mg Q15M PRN IM DECREASED GLUCOSE; Start 10/19/16 at 09:00 Glucose (Glutose) 15 gm Q15M PRN BUCCAL DECREASED GLUCOSE; Start 10/19/16 at 09: 00 Metoprolol Tartrate (Lopressor) 25 mg BID PO Last administered on 10/20/16 08: 41; Admin Dose 25 MG; Start 10/19/16 at 12:00 Digoxin (Digoxin) 0.125 mg DAILY@13 PO ; Start 10/20/16 at 13:00 Apixaban (Eliquis) 5 mg BID PO Last administered on 10/20/16 08:42; Admin Dose 5 MG; Start 10/19/16 at 13:00 Atorvastatin Calcium (Lipitor) 40 mg HS PO Last administered on 10/19/16 20:24 ; Admin Dose 40 MG; Start 10/19/16 at 21:00 HILDA HOUSTON NP Oct 20, 2016 10:44
--- NOTE | 2016-10-20 13:39 | RADRPT ---
Echocardiogram Report Patient Name: TANI GARRETT Gender: Male Date: 1965 Study Date: 19-Oct-2016 C[employer]ure Alterations Dressmaker: MEGGAN Location: I Ref. Physician: LEONOR CONLEY Quality: Adequate Procedures: Transthoracic echocardiogram with complete 2D, M-Mode, and doppler examination. Indications: Atrial Fibrillation. 2D/M Mode Doppler Measurement Value Normal Ranges Measurement Value Normal Ranges AoR Diam MM 3.6 cm AV Peak Caleb 0.9 m/sec ACS MM 2.0 cm AV Peak PG 3.1 mmHg LVIDd 2D 4.8 3.5 - 5.6 cm LVOT Peak Caleb 0.6 m/sec LVIDs 2D 3.7 2.1 - 4.1 cm LVOT Peak PG 1.5 mmHg LVPWd 2D 1.6 0.6 - 1.1 cm TR Peak Caleb 3.2 m/sec IVSd 2D 1.6 0.6 - 1.1 cm TR Peak PG 39.8 mmHg EDV 2D 108.4 cm3 PV Peak Caleb 0.8 m/sec ESV 2D 51.3 cm3 PV Peak PG 2.0 mmHg LA Dimen 2D 5.0 2.3 - 4.0 cm RVSP 47.8 mmHg Findings Left Ventricle: Normal left ventricular cavity size. Moderate concentric left ventricular hypertrophy. Moderate left ventricular systolic dysfunction. Ejection fraction is visually estimated at 40 %. Abnormal Diastolic Function. Right Ventricle: Normal right ventricular size. Normal right ventricular systolic function. Left Atrium: There is moderate enlargement of left atrium. Right Atrium: The right atrium is normal in size. Mitral Valve: Normal appearance of the mitral valve. Mild mitral valve regurgitation. Aortic Valve: No significant aortic stenosis or insufficiency. Aortic cusps appear mildly calcified. Tricuspid Valve: Normal appearance of the tricuspid valve. Estimated peak PA systolic pressure 48 mmHg. There is mild tricuspid regurgitation. Pulmonic Valve: Normal pulmonic valve appearance. There is trace pulmonic regurgitation. Pericardium: Normal pericardium with no significant pericardial effusion. Aorta: Normal aortic root. IVC: Normal size and no respiratory collapse consistent with elevated right atrial pressure. Pulmonary Artery: Normal pulmonary artery size. Conclusions Normal left ventricular cavity size. Moderate concentric left ventricular hypertrophy. Moderate left ventricular systolic dysfunction. Ejection fraction is visually estimated at 40 %. Abnormal Diastolic Function. Normal right ventricular size. Normal right ventricular systolic function. There is moderate enlargement of left atrium. The right atrium is normal in size. Mild mitral valve regurgitation. Estimated peak PA systolic pressure 48 mmHg. There is mild tricuspid regurgitation. No significant aortic stenosis or insufficiency. Normal pericardium with no significant pericardial effusion. Electronically Signed By: Bar Granados 20-Oct-2016 13:39:00 -0700 Patient Name: TANI GARRETT Study Date: 19-Oct-2016 [id number]
--- NOTE | 2016-10-20 13:48 | CONS ---
Date/Time of Note Date/Time of Note DATE: 10/20/16 TIME: 13:46 Assessment/Plan Assessment/Plan Additional Assessment/Plan Atrial fibrillation/flutter with rapid ventricular rates, improved Cardiomyopathy with ejection fraction 40% Mitral valve regurgitation Hypertension Obesity -Increase dose of Lopressor, continue anticoagulation. Unclear if cardiomyopathy secondary to tachycardia induced, will continue rate control. If heart rates not well controlled with medical therapy, would consider cardioversion. Supplement magnesium to maintain above 2.0. Consultation Date/Type/Reason Admit Date/Time Oct 18, 2016 at 19:32 Initial Consult Date 10/19/16 Type of Consultation: cv 24 HR Interval Summary Free Text/Dictation Patient denies shortness of breath or palpitations. Minimally active today. Exam/Review of Systems Vital Signs Vitals Vital Signs Date Time Temp Pulse Resp B/P Pulse Ox O2 Delivery O2 Flow Rate FiO2 10/20/16 12:39 125 10/20/16 11:27 98.3 19 131/72 90 Intake and Output 10/19/16 10/19/16 10/20/16 15:00 23:00 07:00 Intake Total 950 ml 240 ml Output Total 650 ml 850 ml Balance 300 ml -610 ml Exam No apparent distress Constitutional: alert, obese, oriented Head: normocephalic Respiratory: other (Coarse breath sounds bilaterally, no wheezing) Cardiovascular: irregular rhythm, other (S1-S2 heard), systolic murmur Gastrointestinal: bowel sounds, non-tender, soft Extremities: other (No edema) Results Result Diagram: 10/20/16 0620 10/20/16 0620 Results 24 hrs Laboratory Tests Test 10/19/16 18:00 10/19/16 20:21 10/20/16 06:20 10/20/16 07:39 Bedside Glucose 221 H 144 161 White Blood Count 7.4 Red Blood Count 4.99 Hemoglobin 14.2 Hematocrit 41.1 L Mean Corpuscular Volume 82.4 Mean Corpuscular Hemoglobin 28.5 L Mean Corpuscular Hemoglobin Concent 34.5 Red Cell Distribution Width 13.2 Platelet Count 228 Mean Platelet Volume 9.5 Neutrophils % 52.2 Lymphocytes % 36.7 Monocytes % 8.7 Eosinophils % 1.7 Basophils % 0.4 Nucleated Red Blood Cells % 0.0 Neutrophils # 3.9 Lymphocytes # 2.7 Monocytes # 0.7 Eosinophils # 0.1 Basophils # 0.0 Nucleated Red Blood Cells # 0.0 Sodium Level 135 Potassium Level 4.4 Chloride Level 105 Carbon Dioxide Level 20 L Anion Gap 14 Blood Urea Nitrogen 16 Creatinine 0.68 Glucose Level 177 Calcium Level 8.5 Phosphorus Level 3.2 Magnesium Level 1.9 Test 10/20/16 11:37 Bedside Glucose 238 H Medications Medications Current Medications Famotidine (Pepcid) 20 mg BID PO Last administered on 10/20/16 08:42; Admin Dose 20 MG; Start 10/18/16 at 21:30 Docusate Sodium (Colace) 100 mg BID PO Last administered on 10/20/16 08:42; Admin Dose 100 MG; Start 10/19/16 at 09:00 Diltiazem HCl (Cardizem) 30 mg Q8 PO Last administered on 10/19/16 06:04; Admin Dose 30 MG; Start 10/19/16 at 01:00; Status Future Hold Zolpidem Tartrate (Ambien) 5 mg HS PRN PO INSOMNIA Last administered on 20:34; Admin Dose 5 MG; Start 10/18/16 at 21:30 Diltiazem HCl (Cardizem Cd) 120 mg BID PO Last administered on 10/20/16 08:41; Admin Dose 120 MG; Start 10/19/16 at 09:00 Insulin Glargine (Lantus) 20 unit DAILY@20 SC Last administered on 10/19/16 20: 34; Admin Dose 20 UNIT; Start 10/19/16 at 20:00 Diagnostic Test (Pha) (Accu-Chek) 1 ea 02 XX ; Start 10/20/16 at 02:00 Miscellaneous Information 1 ea NOTE XX ; Start 10/19/16 at 09:00 Glucose (Glutose) 15 gm Q15M PRN PO DECREASED GLUCOSE; Start 10/19/16 at 09:00 Glucose (Glutose) 22.5 gm Q15M PRN PO DECREASED GLUCOSE; Start 10/19/16 at 09:00 Dextrose (D50w Syringe) 25 ml Q15M PRN IV DECREASED GLUCOSE; Start 10/19/16 at 09:00 Dextrose (D50w Syringe) 50 ml Q15M PRN IV DECREASED GLUCOSE; Start 10/19/16 at 09:00 Glucagon (Glucagen) 1 mg Q15M PRN IM DECREASED GLUCOSE; Start 10/19/16 at 09:00 Glucose (Glutose) 15 gm Q15M PRN BUCCAL DECREASED GLUCOSE; Start 10/19/16 at 09: 00 Metoprolol Tartrate (Lopressor) 25 mg BID PO Last administered on 10/20/16 08: 41; Admin Dose 25 MG; Start 10/19/16 at 12:00 Digoxin (Digoxin) 0.125 mg DAILY@13 PO ; Start 10/20/16 at 13:00 Apixaban (Eliquis) 5 mg BID PO Last administered on 10/20/16 08:42; Admin Dose 5 MG; Start 10/19/16 at 13:00 Atorvastatin Calcium (Lipitor) 40 mg HS PO Last administered on 10/19/16 20:24 ; Admin Dose 40 MG; Start 10/19/16 at 21:00 Bar Granados DO Oct 20, 2016 13:48
[2016-10-20] MEDS: DIGOXIN 0.125 MG TAB PO SCH (13:59)
[2016-10-20] MEDS ORDERED: MAGNESIUM SULFATE 2 GM/50 ML 50 ML IVPB ONE (14:00)
[2016-10-20] MEDS ORDERED: METOPROLOL 25 MG TAB PO ONE (14:00)
[2016-10-20] MEDS ORDERED: LORAZEPAM 2 MG INJ IV ONE (20:00)
[2016-10-20] MEDS: ATORVASTATIN 40 MG TAB PO SCH (20:42)
[2016-10-20] MEDS: METOPROLOL 50 MG TAB PO SCH (20:42)
[2016-10-20] MEDS: INSULIN GLARGINE [LANtus] 3 ML PEN SC SCH (20:53)
[2016-10-20] MEDS ORDERED: DIGOXIN 500 MCG INJ IV ONE (21:30)
[2016-10-21] VITALS (11 sets, daily range): BP systolic 128–149; BP diastolic 73–111; PULSE 92–132; RESP 17–18
[2016-10-21] MEDS: ACCU-CHEK XX SCH (02:00)
[2016-10-21 06:11] LABS: ADD SCAN DIFF NO
[2016-10-21 06:49] LABS: BASOPHILS % 0.5 % (0.0-2.0); EOSINOPHILS # 0.1 10^3/ul (0.0-0.5); EOSINOPHILS % 1.5 % (0.0-7.0); HEMATOCRIT 42.5 % (42.0-52.0); LYMPHOCYTES # 3.1 10^3/ul (0.8-2.9); LYMPHOCYTES % 40.5 % (15.0-51.0); MEAN CORPUSCULAR HEMOGLOBIN 27.6 pg (29.0-33.0); MEAN CORPUSCULAR HGB CONC 32.9 g/dl (32.0-37.0); MEAN CORPUSCULAR VOLUME 83.8 fl (82.0-101.0); MEAN PLATELET VOLUME 10.2 fl (7.4-10.4); MONOCYTE # 0.7 10^3/ul (0.3-0.9); MONOCYTES % 8.9 % (0.0-11.0); NEUTROPHIL # 3.7 10^3/ul (1.6-7.5); NEUTROPHILS % 48.3 % (39.0-77.0); PLATELET COUNT 239 10^3/UL (140-415); RED BLOOD COUNT 5.07 10^6/ul (4.70-6.10); RED CELL DISTRIBUTION WIDTH 13.5 % (11.5-14.5); WHITE BLOOD COUNT 7.5 10^3/ul (4.8-10.8)
[2016-10-21 07:06] LABS: CALCIUM 8.9 mg/dl (8.4-10.2); CREATININE 0.89 mg/dl (0.61-1.24); POTASSIUM 4.3 mmol/L (3.5-5.1)
[2016-10-21] MEDS: FAMOTIDINE 20 MG TAB PO SCH (08:21)
[2016-10-21] MEDS: DOCUSATE SODIUM 100 MG CAP PO SCH (08:21)
[2016-10-21] MEDS: METOPROLOL 50 MG TAB PO SCH (08:23)
[2016-10-21] MEDS: APIXABAN 5 MG TABLET PO SCH (08:23)
[2016-10-21] MEDS: INSULIN ASPART [NOVOLOG] 3 ML PEN SC SCH ×4 (08:31→13:31)
[2016-10-21] MEDS ORDERED: DILTIAZEM (CD) 120 MG CAP PO SCH ×2 (09:00→21:00)
[2016-10-21] MEDS: DIGOXIN 0.125 MG TAB PO SCH (13:09)
[2016-10-21] MEDS: MAGNESIUM SULFATE 3 GM in SOD CHLORIDE 0.9% 100 ML IVPB ONE ×2 (13:32→14:25)
--- NOTE | 2016-10-21 14:41 | CONS ---
Date/Time of Note Date/Time of Note DATE: 10/21/16 TIME: 14:38 Assessment/Plan Assessment/Plan Additional Assessment/Plan Atrial fibrillation/flutter with rapid ventricular rates, improved Cardiomyopathy with ejection fraction 40% Mitral valve regurgitation Hypertension Obesity -Heart rate trend mildly improved, increase Cardizem to twice daily dosing. Patient's systolic function appears globally diminished and likely tachycardia induced. We are hoping with aggressive rate management, ejection fraction would improve. If heart rate not controlled on medical management, would consider proceeding with cardioversion in the near future. Continue beta- jesica, Cardizem acutely for heart rate control, NIEVES inhibitor for afterload reduction. Anticoagulation. DC planning. Consultation Date/Type/Reason Admit Date/Time Oct 18, 2016 at 19:32 Initial Consult Date 10/19/16 Type of Consultation: cv 24 HR Interval Summary Free Text/Dictation Patient feeling better, denies shortness of breath or palpitations Exam/Review of Systems Vital Signs Vitals Vital Signs Date Time Temp Pulse Resp B/P Pulse Ox O2 Delivery O2 Flow Rate FiO2 10/21/16 14:05 98.0 73 18 129/73 98 Intake and Output 10/20/16 10/20/16 10/21/16 15:00 23:00 07:00 Intake Total 1050 ml 450 ml Output Total 350 ml 300 ml 500 ml Balance -350 ml 750 ml -50 ml Exam No apparent distress Constitutional: alert, obese, oriented Head: normocephalic Neck: supple Respiratory: other (Coarse breath sounds bilaterally, no wheezing) Cardiovascular: irregular rhythm, other (S1-S2 heard), systolic murmur Gastrointestinal: bowel sounds, non-tender, soft Extremities: other (No significant edema) Results Result Diagram: 10/21/16 0535 10/21/16 0535 Results 24 hrs Laboratory Tests Test 10/20/16 17:39 10/20/16 20:40 10/21/16 05:35 10/21/16 07:52 Bedside Glucose 138 163 188 White Blood Count 7.5 Red Blood Count 5.07 Hemoglobin 14.0 Hematocrit 42.5 Mean Corpuscular Volume 83.8 Mean Corpuscular Hemoglobin 27.6 L Mean Corpuscular Hemoglobin Concent 32.9 Red Cell Distribution Width 13.5 Platelet Count 239 Mean Platelet Volume 10.2 Neutrophils % 48.3 Lymphocytes % 40.5 Monocytes % 8.9 Eosinophils % 1.5 Basophils % 0.5 Nucleated Red Blood Cells % 0.0 Neutrophils # 3.7 Lymphocytes # 3.1 H Monocytes # 0.7 Eosinophils # 0.1 Basophils # 0.0 Nucleated Red Blood Cells # 0.0 Sodium Level 138 Potassium Level 4.3 Chloride Level 103 Carbon Dioxide Level 24 Anion Gap 15 Blood Urea Nitrogen 17 Creatinine 0.89 Glucose Level 186 Calcium Level 8.9 Magnesium Level 1.8 Test 10/21/16 13:08 Bedside Glucose 174 Medications Medications Current Medications Famotidine (Pepcid) 20 mg BID PO Last administered on 10/21/16 08:21; Admin Dose 20 MG; Start 10/18/16 at 21:30 Docusate Sodium (Colace) 100 mg BID PO Last administered on 10/21/16 08:21; Admin Dose 100 MG; Start 10/19/16 at 09:00 Diltiazem HCl (Cardizem) 30 mg Q8 PO Last administered on 10/19/16 06:04; Admin Dose 30 MG; Start 10/19/16 at 01:00; Status Future Hold Zolpidem Tartrate (Ambien) 5 mg HS PRN PO INSOMNIA Last administered on 20:34; Admin Dose 5 MG; Start 10/18/16 at 21:30 Insulin Glargine (Lantus) 20 unit DAILY@20 SC Last administered on 10/20/16 20: 53; Admin Dose 20 UNIT; Start 10/19/16 at 20:00 Diagnostic Test (Pha) (Accu-Chek) 1 ea 02 XX ; Start 10/20/16 at 02:00 Miscellaneous Information 1 ea NOTE XX ; Start 10/19/16 at 09:00 Glucose (Glutose) 15 gm Q15M PRN PO DECREASED GLUCOSE; Start 10/19/16 at 09:00 Glucose (Glutose) 22.5 gm Q15M PRN PO DECREASED GLUCOSE; Start 10/19/16 at 09:00 Dextrose (D50w Syringe) 25 ml Q15M PRN IV DECREASED GLUCOSE; Start 10/19/16 at 09:00 Dextrose (D50w Syringe) 50 ml Q15M PRN IV DECREASED GLUCOSE; Start 10/19/16 at 09:00 Glucagon (Glucagen) 1 mg Q15M PRN IM DECREASED GLUCOSE; Start 10/19/16 at 09:00 Glucose (Glutose) 15 gm Q15M PRN BUCCAL DECREASED GLUCOSE; Start 10/19/16 at 09: 00 Digoxin (Digoxin) 0.125 mg DAILY@13 PO Last administered on 10/21/16 13:09; Admin Dose 0.125 MG; Start 10/20/16 at 13:00 Apixaban (Eliquis) 5 mg BID PO Last administered on 10/21/16 08:23; Admin Dose 5 MG; Start 10/19/16 at 13:00 Atorvastatin Calcium (Lipitor) 40 mg HS PO Last administered on 10/20/16 20:42 ; Admin Dose 40 MG; Start 10/19/16 at 21:00 Diltiazem HCl (Cardizem Cd) 120 mg DAILY PO Last administered on 10/21/16 08: 21; Admin Dose 120 MG; Start 10/21/16 at 09:00 Metoprolol Tartrate 50 mg 50 mg BID PO Last administered on 10/21/16 08:23; Admin Dose 50 MG; Start 10/20/16 at 21:00 Magnesium Sulfate/ Sodium Chloride (Magnesium Sulfate/NS) 106 ml @ 35.333 mls/ hr ONCE ONCE IVPB Last administered on 10/21/16 14:25; Admin Dose 35.333 MLS/ HR; Start 10/21/16 at 13:00; Stop 10/21/16 at 15:59 Bar Granados DO Oct 21, 2016 14:41
[2016-10-21] MEDS ORDERED: LISINOPRIL 5 MG TAB PO SCH (15:00)
--- NOTE | 2016-10-21 15:01 | PDOCDIS ---
Discharge Instructions DIAGNOSIS Discharge Diagnosis Atrial flutter. CONDITION Patient Condition: Stable HOME CARE INSTRUCTIONS: Special Diet: Carbohydrate controlled, low-cholesterol OTHER ORDERS: Other Orders: 1. Take medications as per prescription. 2. Take a low-cholesterol, carbohydrate controlled diet. 3. Continue taking Eliquis. 4. Follow-up with your primary care physician in 1 week. Arrange with your primary care physician for outpatient cardiology follow-up. 5. Please call 911 or go to the nearest emergency room if you have significant chest pain, palpitations, shortness of breath, or any other unusual signs/ symptoms. EDA BENTON NP Oct 21, 2016 15:01
[2016-10-21] MEDS ORDERED: LANT3I SC (15:03)
[2016-10-21] MEDS ORDERED: ZOLP5TAB7 PO (15:03)
[2016-10-21] MEDS ORDERED: LISI-313 PO (15:03)
[2016-10-21] MEDS ORDERED: DILT120C77 PO (15:03)
[2016-10-21] MEDS ORDERED: APIX5TAB PO (15:03)
[2016-10-21] MEDS ORDERED: DIGO125T PO (15:03)
[2016-10-21] MEDS ORDERED: METO-429 PO (15:03)
[2016-10-21] MEDS ORDERED: ATOR40TA68 PO (15:03)
[2016-10-21] MEDS ORDERED: METF500T4 PO (15:04)
--- NOTE | 2016-10-21 15:40 | DS ---
Date/Time of Note Date/Time of Note DATE: 10/21/16 TIME: 15:39 Discharge Summary Admission/Discharge Info Admit Date/Time Oct 18, 2016 at 19:32 Discharge Date/Time Discharge Diagnosis 1. Atrial flutter. 2. Type 2 diabetes mellitus. 3. Dyslipidemia. 4. Cardiomyopathy. Ejection fraction 40%. 5. Pulmonary hypertension. 6. Obesity. Patient Condition: Stable Consults 1. Bar Granados DO, Cardiology. Procedures CXR IMPRESSION: 1. Unremarkable chest x-ray. 2D Echocardiogram Conclusions Normal left ventricular cavity size. Moderate concentric left ventricular hypertrophy. Moderate left ventricular systolic dysfunction. Ejection fraction is visually estimated at 40 %. Abnormal Diastolic Function. Normal right ventricular size. Normal right ventricular systolic function. There is moderate enlargement of left atrium. The right atrium is normal in size. Mild mitral valve regurgitation. Estimated peak PA systolic pressure 48 mmHg. There is mild tricuspid regurgitation. No significant aortic stenosis or insufficiency. Normal pericardium with no significant pericardial effusion. Hx of Present Illness 51-year-old male with a past medical history of high blood pressure and diabetes was at an outside clinic outside clinic, who was referred to us from where he had an abnormal EKG. Patient reports just feeling sick with occasional palpitations and some nausea, but he had no chest pain or shortness of breath. Was recently diagnosed with high blood pressure and started on 3 new medications, but did not feel better and that is why he went back to the clinic today. EKG showed atrial flutter and this was reproduced in the emergency room with a rapid ventricular response he was treated with calcium channel blockers with mild improvement and he was admitted for a detailed workup and cardiology review and further management. Hospital Course The patient was evaluated by cardiology. The patient was started on anticoagulation for stroke prophylaxis because of high CHADS2 score. The patient was started on beta-blockers, digoxin, and calcium channel blockers with improvement the patient's heart rate. The patient was later converted to sinus rhythm with underlying sinus tachycardia. Patient underwent a 2D echocardiogram that showed abnormal systolic dysfunction with an ejection fraction of 40%. The etiology of the patient's underlying cardiomyopathy remains unclear. The patient had no evidence of any congestive heart failure exacerbation. The patient was noticed to have dyslipidemia. The patient was started on statins. Patient also had uncontrolled diabetes. The patient's hemoglobin A1c was found to be 10.6. The patient was maintained on sliding scale insulin along with Lantus insulin and pre-meal insulin. The patient verbalized that he has been the taking metformin at home. The patient was seen by family educator. The patient ideally needs to be on insulin along with metformin because of high A1c and uncontrolled blood sugars. Nevertheless, the patient refused to take any insulin with his job because he verbalized that it can compromise his job security. Finally, he agreed to take the Lantus insulin daily and will be discharged on Lantus insulin. Patient has underlying essential hypertension. He has been on antihypertensives for the same. Patient is morbidly obese with a BMI of 37.2 kg/m. He was advised on weight reduction. The patient had a stable hospital course. The patient was cleared by cardiology to be discharged home. The patient denied any complaints at the time of discharge. Discharge Instructions 1. Take medications as per prescription. 2. Take a low-cholesterol, carbohydrate controlled diet. 3. Continue taking Eliquis. 4. Follow-up with your primary care physician in 1 week. Arrange with your primary care physician for outpatient cardiology follow-up. 5. Please call 911 or go to the nearest emergency room if you have significant chest pain, palpitations, shortness of breath, or any other unusual signs/ symptoms. Patient verbalized understanding of his discharge instructions. At this time I would like to thank Dr. Granados for seeing the patient and providing clinical recommendations. Case discussed with Dr. Vieira Palatine Meds Active Scripts Metformin* (Glucophage*) 500 Mg Tab, 500 MG PO BID WITH MEALS, #60 TAB Prov:EDA BENTON NP 10/21/16 Insulin Glargine* (Lantus*) 100 Unit/Ml Soln, 20 UNIT SC DAILY@20 for 30 Days Prov:EDA BENTON NP 10/21/16 Zolpidem Tartrate* (Zolpidem Tartrate*) 5 Mg Tablet, 5 MG PO HS Y for INSOMNIA for 14 Days, TAB Prov:EDA BENTON NP 10/21/16 Metoprolol Tartrate* (Lopressor*) 50 Mg Tab, 50 MG PO BID for 30 Days, TAB Prov:EDA BENTON NP 10/21/16 Lisinopril* (Lisinopril*) 5 Mg Tablet, 2.5 MG PO DAILY for 30 Days, TAB Prov:EDA BENTON NP 10/21/16 Diltiazem Hcl* (Cardizem CD*) 120 Mg Cap.sr.24h, 120 MG PO BID for 30 Days Prov:EDA BENTON CLERK GUIDE 10/21/16 Digoxin* (Digitek*) 125 Mcg Tablet, 0.125 MG PO DAILY@13 for 30 Days, TAB Prov:EDA BENTON CLERK GUIDE 10/21/16 Atorvastatin* (Atorvastatin*) 40 Mg Tablet, 40 MG PO HS for 30 Days, TAB Prov:EDA BENTON CLERK GUIDE 10/21/16 Apixaban* (Eliquis*) 5 Mg Tablet, 5 MG PO BID for 30 Days, TAB Prov:EDA BENTON CLERK GUIDE 10/21/16 Follow-up Plan Follow-up with the primary care physician 1 week. Please have your primary care physician arrange for outpatient cardiology follow-up Primary Care Provider Not On Staff Doctor Time spent on discharge: > 30 minutes Pending Labs Laboratory Tests Test 10/20/16 17:39 10/20/16 20:40 10/21/16 05:35 10/21/16 07:52 Bedside Glucose 138mg/dL (70-220) 163mg/dL (70-220) 188mg/dL (70-220) White Blood Count 7.510^3/ul (4.8-10.8) Red Blood Count 5.0710^6/ul (4.70-6.10) Hemoglobin 14.0g/dl (14.0-18.0) Hematocrit 42.5% (42.0-52.0) Mean Corpuscular Volume 83.8fl (82.0-101.0) Mean Corpuscular Hemoglobin 27.6pg (29.0-33.0) Mean Corpuscular Hemoglobin Concent 32.9g/dl (32.0-37.0) Red Cell Distribution Width 13.5% (11.5-14.5) Platelet Count 89847^3/UL (140-415) Mean Platelet Volume 10.2fl (7.4-10.4) Neutrophils % 48.3% (39.0-77.0) Lymphocytes % 40.5% (15.0-51.0) Monocytes % 8.9% (0.0-11.0) Eosinophils % 1.5% (0.0-7.0) Basophils % 0.5% (0.0-2.0) Nucleated Red Blood Cells % 0.0/100WBC (0.0-0.0) Neutrophils # 3.710^3/ul (1.6-7.5) Lymphocytes # 3.110^3/ul (0.8-2.9) Monocytes # 0.710^3/ul (0.3-0.9) Eosinophils # 0.110^3/ul (0.0-0.5) Basophils # 0.010^3/ul (0.0-0.1) Nucleated Red Blood Cells # 0.010^3/ul (0.0-0.0) Sodium Level 138mmol/L (135-144) Potassium Level 4.3mmol/L (3.5-5.1) Chloride Level 103mmol/L (97-110) Carbon Dioxide Level 24mmol/L (21-31) Anion Gap 15 (8-16) Blood Urea Nitrogen 17mg/dl (7-20) Creatinine 0.89mg/dl (0.61-1.24) Glucose Level 186mg/dl (70-220) Calcium Level 8.9mg/dl (8.4-10.2) Magnesium Level 1.8mg/dl (1.7-2.5) Test 10/21/16 13:08 Bedside Glucose 174mg/dL (70-220) EDA BENTON NP Oct 21, 2016 15:40 EDA BENTON NP Oct 21, 2016 15:40
== END 2016-10-21 17:21 | disposition home or self-care (01) | DRG 310 ==
LOC: E/R 18:04 → TEL 19:32
PROVIDERS: ADMIT Internal Medicine; ATTEND Internal Medicine
DX: I48.92 Unspecified atrial flutter (principal); I42.9 Cardiomyopathy, unspecified; I27.2 Other secondary pulmonary hypertension; I10 Essential (primary) hypertension; E83.42 Hypomagnesemia; E11.9 Type 2 diabetes mellitus without complications; E66.9 Obesity, unspecified; E78.5 Hyperlipidemia, unspecified; I34.0 Nonrheumatic mitral (valve) insufficiency; Z68.37 Body mass index [BMI] 37.0-37.9, adult
CPT/HCPCS: 36415; 71010; 80048; 80061; 80307; 82550; 82553; 82962; 83036; 83735; 84100; 84439; 84443; 84484; 85025; 85610; 85730; 93005; 93306; 96374; 96375; 96376; J1650; J1815; J2060; J3475; J7030